=== PATIENT | male | born 1980 | race African-American/Black ===

== ENCOUNTER 2023-09-23 19:14 | Inpatient (IN) | payer SELFPAY ==
[2023-09-23] MEDS ORDERED: MORPHINE 4 MG/ML SYR ONE ×3 (20:49→23:06)
[2023-09-23] MEDS ORDERED: NA CHLORIDE 0.9% 0 ML ONE (20:50)
[2023-09-23] MEDS ORDERED: ONDANSETRON 4 MG/2 ML VIAL ONE ×2 (20:50→20:55)
[2023-09-23] MEDS ORDERED: FAMOTIDINE 20 MG/2 ML VIAL IV ONE ×2 (20:50→20:55)
[2023-09-23] MEDS ORDERED: NA CHLORIDE 0.9% 1,000 ML ONE ×2 (20:55→23:06)
[2023-09-23 21:08] LABS: Absolute Lymphocytes (CBC) 1.2 K/uL (0.7-4.9); Hematocrit 46.2 % (39.6-49.0); MCV 93.2 fL (80-100); MPV 8.7 fL (7.6-11.3); Platelets 205 thou/uL (152-406); RBC Red Blood Cell Count 4.96 M/uL (4.33-5.43)
[2023-09-23 21:16] LABS: Albumin 3.8 g/dL (3.4-5.0); Bilirubin Total 1.5 mg/dL (0.2-1.0); Potassium 3.3 mEq/L (3.5-5.1)
[2023-09-23 21:46] LABS: Specific Gravity 1.015 (1.005-1.030); Urine Bilirubin NEGATIVE (Negative); Urine Blood Negative (Negative); Urine Clarity Clear (Clear); Urine Color Light-Yellow (Yellow); Urine Glucose NEGATIVE (Negative); Urine Protein NEGATIVE (Negative); Urine Urobilinogen Normal (Normal)
--- NOTE | 2023-09-23 22:07 | RAD REPORT ---
EXAM DESCRIPTION: CT - Abdomen Pelvis W Contrast - 09/23/2023 9:52 pm CLINICAL HISTORY: Abdominal pain COMPARISON: none. TECHNIQUE: Computed axial tomography of the abdomen pelvis was obtained. 100 cc Isovue-300 was admin istered intravenously. Oral contrast was not requested which limits evaluation of bowel and appendix All CT scans are performed using dose optimization technique as appropriate and may include automated exposure control or mA/KV adjustment according to patient size. FINDINGS: Pancreas is normal size and density. There is mild to moderate peripancreatic stranding. V erlinda small amount of ill-defined fluid within the peripancreatic space. No pseudocyst The liver, spleen, adrenal and kidneys appear unremarkable. There is no evidence of diverticulitis. Normal appendix IMPRESSION: Mild to moderate pancreatitis
--- NOTE | 2023-09-23 22:36 | ER ---
Nurse's Notes [facility] Name: Chun Hair Age: 43 yrs Sex: Male : 1980 Arrival Date: 09/23/2023 Time: 19:14 Bed 14 Private MD: Diagnosis: Other acute pancreatitis without necrosis or infection Presentation: 09/23 19:37 Chief complaint: Patient states: abdominal pain. diagnosed 1 month ago with lg3 pancreatitis. pain comes and goes. started again last night with nausea, vomiting and constipation. Coronavirus screen: Client denies travel out of the [place] in the last 14 days. At this time, the client does not indicate any symptoms associated with coronavirus-19. Ebola Screen: No symptoms or risks identified at this time. Initial Sepsis Screen: Does the patient meet any 2 criteria? No. Patient's initial sepsis screen is negative. Does the patient have a suspected source of infection? No. Patient's initial sepsis screen is negative. Risk Assessment: Do you want to hurt yourself or someone else? Patient reports no desire to harm self or others. Onset of symptoms was September 22, 2023. 19:37 Method Of Arrival: Ambulatory lg3 19:37 Acuity: BERLIN 3 lg3 Triage Assessment: 19:40 General: Appears in no apparent distress. uncomfortable, Behavior is calm, cooperative. lg3 Pain: Complains of pain in abdomen. EENT: No deficits noted. No signs and/or symptoms were reported regarding the EENT system. Neuro: No deficits noted. Lozano Agitation-Sedation Scale (RASS): 0 - Alert and Calm Level of Consciousness is awake, alert, obeys commands, Oriented to person, place, time, situation. Cardiovascular: No deficits noted. Denies chest pain, shortness of breath, Capillary refill < 3 seconds Clubbing of nail beds is absent JVD is absent Patient's skin is warm and dry. Respiratory: No deficits noted. Airway is patent Respiratory effort is even, unlabored, Respiratory pattern is regular, symmetrical. GI: Abdomen is round non-distended, Reports lower abdominal pain, upper abdominal pain, constipation, cramping, nausea, vomiting. : No deficits noted. No signs and/or symptoms were reported regarding the genitourinary system. Derm: No deficits noted. No signs and/or symptoms reported regarding the dermatologic system. Musculoskeletal: No deficits noted. No signs and/or symptoms reported regarding the musculoskeletal system. Circulation, motion, and sensation intact. Range of motion: intact in all extremities. Historical: - Allergies: 19:40 amoxicillin; lg3 - Home Meds: 19:40 HCTZ [Active]; amlodipine oral [Active]; lg3 - PMHx: 19:40 HTN; pancreatitis; lg3 - PSHx: 19:40 left shoulder; lg3 - Immunization history:: Adult Immunizations up to date. - Social history:: Smoking status: Patient reports the use of cigarette tobacco products, smokes one-half pack cigarettes per day, Patient uses alcohol, occasionally. Patient/guardian denies using street drugs. Screenin:13 [facility] ED Fall Risk Assessment (Adult) History of falling in the last 3 months, me1 including since admission No falls in past 3 months (0 pts) Confusion or Disorientation No (0 pts) Intoxicated or Sedated No (0 pts) Impaired Gait No (0 pts) Mobility Assist Device Used No (0 pt) Altered Elimination No (0 pt) Score/Fall Risk Level 0 - 2 = Low Risk Maintained a safe environment, Provided non-skid footwear, Hourly rounding (assess needs \T\ fall precautionary measures) done. Abuse screen: Denies threats or abuse. Nutritional screening: No deficits noted. Tuberculosis screening: No symptoms or risk factors identified. Assessment: 23:10 General: Appears uncomfortable, well groomed, well developed, well nourished, Behavior me1 is calm, cooperative, appropriate for age, Reports abdominal pain. diagnosed 1 month ago with pancreatitis. pain comes and goes. started again last night with nausea, vomiting and constipation. Pain: Complains of pain in abdomen Pain does not radiate. Pain currently is 5 out of 10 on a pain scale. Quality of pain is described as crampy, piercing, Pain began gradually, 1 day ago. Is continuous. Neuro: Level of Consciousness is awake, alert, obeys commands, Oriented to person, place, time, situation, Appropriate for age. Cardiovascular: Capillary refill < 3 seconds Patient's skin is warm and dry. Respiratory: Airway is patent Respiratory effort is even, unlabored, Respiratory pattern is regular, symmetrical. GI: Bowel sounds present X 4 quads. Abd is soft X 4 quads Reports upper abdominal pain, constipation, nausea, vomiting, since yesterday. Vital Signs: 19:37 BP 163 / 106; Pulse 71; Resp 19 S; Temp 99(O); Pulse Ox 100% on R/A; Weight 115.67 kg lg3 (R); Height 5 ft. 10 in. (R); Pain 8/10; 20:47 BP 148 / 75; Pulse 72; Resp 17; Pulse Ox 99% ; jj7 21:30 BP 142 / 83; Pulse 76; Resp 16; Pulse Ox 98% on R/A; me1 22:30 BP 143 / 76; Pulse 74; Resp 16; Pulse Ox 96% on R/A; me1 23:30 BP 142 / 81; Pulse 74; Resp 16; Pulse Ox 100% on R/A; me1 19:37 Body Mass Index 36.59 (115.67 kg, 177.8 cm) lg3 19:37 Pain Scale: Adult lg3 ED Course: 19:20 Patient arrived in ED. gm2 19:21 John Newberry PA is PHCP. cp 19:21 John Bustillos MD is Attending Physician. cp 19:40 Triage completed. lg3 19:40 Arm band placed on right wrist. lg3 20:26 Alina Tavarez, HAILEE is Primary Nurse. me1 20:37 CBC with Diff Sent. jr12 20:37 CMP Sent. jr12 20:37 Lipase Sent. jr12 20:37 Inserted saline lock: 22 gauge in left antecubital area, using aseptic technique. Blood jr12 collected. 21:42 Urinalysis w/ reflexes Sent. me1 21:54 CT Abd/Pelvis - IV Contrast Only In Process Unspecified. EDMS 22:34 Klever Ko MD is Hospitalizing Provider. cp 22:48 Blood Culture Adult (2) Sent. me1 22:48 Lactate w/ 2H reflex if indic. Sent. me1 22:48 Manual Differential Sent. me1 22:55 US Abdomen Limited: gallbladder In Process Unspecified. EDMS 23:13 Patient has correct armband on for positive identification. Bed in low position. Call me1 light in reach. Side rails up X 1. Provided Education on: POC. Verbalized understanding. . 23:13 No provider procedures requiring assistance completed. Flushed right antecubital. me1 09/24 13:06 Patient admitted, IV remains in place. ko1 Administered Medications: 09/23 20:46 Drug: morphine IVP or IV 4 mg IVP once over 4 mins Route: IVP; Infused Over: 4 mins; jj7 Site: left antecubital; 21:42 Follow up: Response: No adverse reaction me1 20:47 Drug: NS 0.9% IV 1000 ml IV at 1 bolus Per protocol; 1000 mL bolus Route: IV; Rate: 1 jj7 bolus; Site: left antecubital; 20:47 Drug: Famotidine IVP 20 mg IVP once; dilute with 10 mL 0.9% NaCl; give over 2 minutes jj7 Route: IVP; Site: left antecubital; 21:42 Follow up: Response: No adverse reaction me1 20:47 Drug: Ondansetron IVP 4 mg IVP once; over 2 minutes Route: IVP; Site: left antecubital; jj7 21:42 Follow up: Response: No adverse reaction me1 22:54 Drug: NS 0.9% IV 1000 ml IV at 1 bolus Per protocol; 1000 mL bolus Route: IV; Rate: 1 me1 bolus; Site: left antecubital; 22:54 Drug: morphine IVP or IV 4 mg IVP once over 4 mins Route: IVP; Infused Over: 4 mins; me1 Site: left antecubital; Medication: 09/24 13:06 VIS not applicable for this client. ko1 Outcome: 09/23 22:35 Decision to Hospitalize by Provider. cp 09/24 13:06 Admitted to Med/surg accompanied by tech, via wheelchair, room 409, with chart, Report ko1 called to HAILEE Brown Condition: stable Instructed on the need for admit, 13:42 Patient left the ED. ll1 Signatures: Dispatcher [employer] [facility] John Newberry PA PA cp Nataliia Villa RN RN lg3 Juvenal Hunter RN RN ll1 Madison Hopper RN RN ko1 Bertha Love RN RN jj7 Alina Tavarez RN RN me1 Sarah Deutsch [facility] Angie Ray 2 Corrections: (The following items were deleted from the chart) 09/23 23:10 19:37 Chief complaint: Patient states: abdominal pain. diagnosed 1 month ago with me1 pancreatitis. pain comes and goes. started again last night with nausea, vomiting and constipation. lg3
--- NOTE | 2023-09-23 22:36 | EDPHYS ---
Physician Documentation [facility] Name: Chun Hair Age: 43 yrs Sex: Male : 1980 Arrival Date: 09/23/2023 Time: 19:14 Bed 14 Private MD: ED Physician John Bustillos HPI: 09/23 19:45 This 43 yrs old Black Male presents to ER via Ambulatory with complaints of Abdominal cp Pain. 19:45 The patient presents with abdominal pain that is diffuse. cp 19:45 Onset: The symptoms/episode began/occurred yesterday, and became worse today. The cp symptoms do not radiate. Associated signs and symptoms: Pertinent positives: nausea, Pertinent negatives: chest pain, constipation, diarrhea, fever, testicular pain, vomiting. The symptoms are described as constant. Severity of pain: in the emergency department the pain is unchanged despite home interventions. The patient has experienced a previous episode, pain similar to recent diagnosis for pancreatitis. Historical: - Allergies: 19:40 amoxicillin; lg3 - Home Meds: 19:40 HCTZ [Active]; amlodipine oral [Active]; lg3 - PMHx: 19:40 HTN; pancreatitis; lg3 - PSHx: 19:40 left shoulder; lg3 - Immunization history:: Adult Immunizations up to date. - Social history:: Smoking status: Patient reports the use of cigarette tobacco products, smokes one-half pack cigarettes per day, Patient uses alcohol, occasionally. Patient/guardian denies using street drugs. ROS: 19:50 Constitutional: Negative for body aches, chills, fever, poor PO intake, cp 19:50 Eyes: Negative for injury, pain, redness, and discharge, cp 19:50 Abdomen/GI: Positive for abdominal pain, nausea, Negative for vomiting, diarrhea, constipation, 19:50 ENT: Negative for drainage from ear(s), ear pain, sore throat, difficulty swallowing, cp difficulty handling secretions, 19:50 Cardiovascular: Negative for chest pain, edema, palpitations, 19:50 Respiratory: Negative for cough, shortness of breath, wheezing, 19:50 Back: Negative for pain at rest, pain with movement, 19:50 : Negative for testicular pain 19:50 Neuro: Negative for altered mental status, headache, weakness, 19:50 All other systems are negative, cp Exam: 19:50 Constitutional: The patient appears in no acute distress, alert, awake, cp non-diaphoretic, non-toxic, well developed, well nourished, uncomfortable, 19:50 Head/Face: Normocephalic, atraumatic. cp 19:50 Eyes: Periorbital structures: appear normal, Conjunctiva: normal, no exudate, no injection, Sclera: no appreciated abnormality, Lids and lashes: appear normal, bilaterally, 19:50 ENT: External ear(s): are unremarkable, Nose: is normal, Mouth: Lips: moist, Oral mucosa: moist, Posterior pharynx: is normal, airway is patent, no erythema, no exudate, 19:50 Neck: ROM/movement: is normal, is supple, without pain, no range of motions limitations, 19:50 Chest/axilla: Inspection: normal, 19:50 Cardiovascular: Rate: normal, Rhythm: regular, 19:50 Respiratory: the patient does not display signs of respiratory distress, Respirations: normal, no use of accessory muscles, no retractions, labored breathing, is not present, Breath sounds: are clear throughout, no decreased breath sounds, no stridor, no wheezing, 19:50 Abdomen/GI: Inspection: abdomen appears normal, Bowel sounds: active, all quadrants, Palpation: soft, in all quadrants, moderate abdominal tenderness, in the abdomen diffusely, rebound tenderness, is not appreciated, voluntary guarding, is elicited in the abdomen diffusely, 19:50 Back: pain, is absent, ROM is normal, Vital Signs: 19:37 BP 163 / 106; Pulse 71; Resp 19 S; Temp 99(O); Pulse Ox 100% on R/A; Weight 115.67 kg lg3 (R); Height 5 ft. 10 in. (R); Pain 8/10; 20:47 BP 148 / 75; Pulse 72; Resp 17; Pulse Ox 99% ; jj7 21:30 BP 142 / 83; Pulse 76; Resp 16; Pulse Ox 98% on R/A; me1 22:30 BP 143 / 76; Pulse 74; Resp 16; Pulse Ox 96% on R/A; me1 23:30 BP 142 / 81; Pulse 74; Resp 16; Pulse Ox 100% on R/A; me1 19:37 Body Mass Index 36.59 (115.67 kg, 177.8 cm) lg3 19:37 Pain Scale: Adult lg3 MDM: 19:43 Patient medically screened. cp 20:00 Differential diagnosis: appendicitis, bowel obstruction, cholecystitis, Cholelithiasis, cp gastritis, non-specific abd pain, pancreatitis, Peptic Ulcer Disease, Perf. Duodenal Ulcer, Perf. Gastric Ulcer, Pyelonephritis, Ureterolithiasis, urinary tract infection. 22:20 Data reviewed: vital signs, nurses notes, lab test result(s), radiologic studies, CT cp scan, and as a result, I will admit patient. 22:20 Management of patient was discussed with the following: Hospitalist: DR Ko will cp admit after discussion. I considered the following discharge prescriptions or medication management in the emergency department Medications were administered in the Emergency Department. See MAR. Care significantly affected by the following chronic conditions: Hypertension. 09/23 19:39 Order name: CBC with Diff 09/23 22:15 Interpretation: Normal except: WBC 14.90; OG% 87.5; LYM% 8.0; NEUT A 13.0. 09/23 19:39 Order name: CMP; Complete Time: 22:12 09/23 22:15 Interpretation: Normal except: K 3.3; NA 133; BILIT 1.5; A/G 0.9; GLOB 4.2. 09/23 19:39 Order name: Lipase; Complete Time: 22:12 09/23 22:15 Interpretation: Abnormal: LIP 3807. 09/23 19:39 Order name: Urinalysis w/ reflexes; Complete Time: 22:12 09/23 21:37 Order name: Manual Differential EDMS 09/23 22:16 Order name: Lactate w/ 2H reflex if indic. 09/23 22:16 Order name: Blood Culture Adult (2) 09/23 22:49 Order name: Urinalysis w/ reflexes EDMS 09/23 20:21 Order name: CT Abd/Pelvis - IV Contrast Only; Complete Time: 22:12 09/23 22:36 Order name: US Abdomen Limited: gallbladder 09/23 19:39 Order name: IV Saline Lock; Complete Time: 20:37 09/23 19:39 Order name: Labs collected and sent; Complete Time: 20:37 09/23 22:36 Order name: NPO; Complete Time: 22:48 cp Administered Medications: 20:46 Drug: morphine IVP or IV 4 mg IVP once over 4 mins Route: IVP; Infused Over: 4 mins; jj7 Site: left antecubital; 21:42 Follow up: Response: No adverse reaction me1 20:47 Drug: NS 0.9% IV 1000 ml IV at 1 bolus Per protocol; 1000 mL bolus Route: IV; Rate: 1 jj7 bolus; Site: left antecubital; 20:47 Drug: Famotidine IVP 20 mg IVP once; dilute with 10 mL 0.9% NaCl; give over 2 minutes jj7 Route: IVP; Site: left antecubital; 21:42 Follow up: Response: No adverse reaction me1 20:47 Drug: Ondansetron IVP 4 mg IVP once; over 2 minutes Route: IVP; Site: left antecubital; jj7 21:42 Follow up: Response: No adverse reaction me1 22:54 Drug: NS 0.9% IV 1000 ml IV at 1 bolus Per protocol; 1000 mL bolus Route: IV; Rate: 1 me1 bolus; Site: left antecubital; 22:54 Drug: morphine IVP or IV 4 mg IVP once over 4 mins Route: IVP; Infused Over: 4 mins; me1 Site: left antecubital; Disposition Summary: 09/23/23 22:35 Hospitalization Ordered Notes: Hospitalization Status: Inpatient Admission cp Provider: Klever Ko cp Condition: Stable cp Problem: new cp Symptoms: have improved cp Bed/Room Type: Standard cp Location: Telemetry/MedSurg (Inpatient)(09/24/23 12:19) bd Room Assignment: [facility](09/24/23 12:19) bd Diagnosis - Other acute pancreatitis without necrosis or infection cp Forms: - Medication Reconciliation Form cp - SBAR form cp - Leadership Thank You Letter cp Signatures: Dispatcher [employer] Sara Knight Corey, PA PA cp Gibson, Lacie RN RN lg3 Bertha Love RN RN jj7 Alina Tavarez RN RN me1 Corrections: (The following items were deleted from the chart) 22:15 22:12 Normal except: K 3.3; NA 133. cp cp 09/24 01:55 11/28 22:35 Telemetry/MedSurg (Inpatient) cp lg3 09/24 01:55 09/23 22:35 cp lg3 09/24 12:19 01:55 [facility] ER HOLD lg3 bd 12: 01:55 ERHOLD- lg3 bd
[2023-09-23] MEDS ORDERED: ACETAMINOPHEN 325 MG TABLET PO PRN (22:43)
--- NOTE | 2023-09-23 22:48 | P.HP ---
Certification for Inpatient Patient admitted to: Inpatient With expected LOS: >2 Midnights Practitioner: I am a practitioner with admitting privileges, knowledge of patient current condition, hospital course, and medical plan of care. Services: Services provided to patient in accordance with Admission requirements found in Title 42 Section 412.3 of the Code of Federal Regulations Patient History Date of Service: 09/24/23 Reason for admission: Abdominal pain, pancreatitis. History of Present Illness: 43-year-old male patient who has no significant medical history was evaluated in the ED for episode of abdominal pain. Pain was said to be rated 10 out of 10 in intensity located in the upper abdomen region radiating to the back. Because of concerns he had lab work that showed elevated lipase of [address] of the abdomen/pelvis done revealed increased peripancreatic fluid inflammation which is mild to moderate without any overt abscess collection. He was deemed to have significant pancreatitis based on clinical and imaging finding and was admitted for inpatient care. Review of Systems General: Unremarkable Eyes: Unremarkable ENT: Unremarkable Respiratory: Unremarkable Cardiovascular: Unremarkable Gastrointestinal: Abdominal Pain Genitourinary: Unremarkable Musculoskeletal: Unremarkable Integumentary: Unremarkable Neurological: Unremarkable Physical Examination - Physical Exam General: Alert, Oriented x3 HEENT: Atraumatic, Normocephalic Neck: Supple Respiratory: Normal air movement Cardiovascular: Regular rate/rhythm, Normal S1 S2 Gastrointestinal: Tenderness Musculoskeletal: No swelling Neurological: Normal speech - Studies Laboratory Data (last 24 hrs) 09/23/23 09/23/23 20:23 20:23 WBC 14.90 H Hgb 15.4 Hct 46.2 Plt Count 205 Sodium 133 L Potassium 3.3 L BUN 9 Creatinine 0.92 Glucose 88 Total Bilirubin 1.5 H AST 32 ALT 51 Alkaline Phosphatase 80 Lipase 3807 H Assessment and Plan - Plan Pancreatitis: Imaging studies reviewed peripancreatic fluid and moderate pancreatic inflammation. No abscess collection noted. Empiric therapy with lactated Ringer's, IV Dilaudid started. Patient will be kept nil per os pending further review. Gastroenterology consultation will be determined by clinical response. Abdominal pain: Deemed due to pancreatitis episode. Will monitor routinely and adjust pain control to achieve adequate response Hypokalemia: Low potassium noted at 3.3. Will replete and follow levels. Hyponatremia: Low sodium is at 133. Will continue isotonic fluid administration and monitor levels on the labs. Prophylaxis: Lovenox for DVT prophylaxis CODE STATUS: Full code Disposition: We will treat pancreatitis and he will be discharged once medically cleared. - Advance Directives Does patient have a Living Will: No Does patient have a Durable POA for Healthcare: No
[2023-09-23 23:06] LABS: Blood Morphology Comment NOT SEEN (NOT SEEN); Platelet Estimate ADEQ
[2023-09-24] MEDS ORDERED: Ringers Lactate 1,000 ML IV ONE ×2 (01:57→10:21)
[2023-09-24] MEDS: Ringers Lactate 1,000 ML IV SCH ×5 (02:20→23:00)
[2023-09-24] MEDS: HYDROMORPHONE HCL 0.5 MG/0.5 ML INJ IV PRN ×4 (02:33→20:32)
[2023-09-24] MEDS ORDERED: HYDROMORPHONE HCL 0.5 MG/0.5 ML INJ ONE ×2 (02:44→11:20)
[2023-09-24 02:49] VITALS: BMI 35.9
[2023-09-24] MEDS: POTASSIUM 25 MEQ EFFERV TAB PO ONE ×2 (07:20)
[2023-09-24] MEDS: ENOXAPARIN 40 MG/0.4 ML SQ SCH (09:00)
[2023-09-24] MEDS ORDERED: ENOXAPARIN 40 MG/0.4 ML SQ ONE (10:21)
[2023-09-24] MEDS ORDERED: KCL 20 MEQ/100 mL IVPB 20 MEQ/100 ML BAG IV ONE (11:00)
[2023-09-24] MEDS: ONDANSETRON 4 MG/2 ML VIAL IV PRN ×2 (11:03→20:36)
[2023-09-24] MEDS ORDERED: ONDANSETRON 4 MG/2 ML VIAL ONE (11:20)
--- NOTE | 2023-09-24 11:30 | RAD REPORT ---
EXAM DESCRIPTION: US - Abdomen Exam Limited - 09/23/2023 10:53 pm CLINICAL HISTORY: The patient is 43 years old and is Male; ABD PAIN TECHNIQUE: Real-time ultrasound of the right upper quadrant with image documentation. COMPARISON: No relevant prior studies available. FINDINGS: Gallbladder: Unremarkable. No gallstones. Common bile duct: Unremarkable as visualized. No stones. No dilation. IMPRESSION: Normal right upper quadrant ultrasound. Electronically signed by: Garrett Collado MD 09/23/2023 11:46 PM BANDMILL OPERATOR Due to temporary technical issues with the PACS/Fluency reporting system, reports are being signed by the in house radiologist without review as a courtesy to ensure prompt reporting. The interpreting r adiologist is fully responsible for the content of the report.
--- NOTE | 2023-09-24 15:33 | RAD REPORT ---
EXAM DESCRIPTION: MRI - Cholangiogram - 09/24/2023 1:10 pm CLINICAL HISTORY: Acute pancreatitis COMPARISON: Abdomen Pelvis W Contrast dated 09/23/2023; Abdomen Exam Limited dated 09/23/2023 TECHNIQUE: Multiplanar multisequence MRI of the abdomen, obtained without IV contrast, utilizing M BENCH JEWELER sequences. FINDINGS: Breathing motion artifact somewhat limits evaluation. Left lower lobe dependent atelectati c changes with trace pleural effusion. Gallbladder is normally distended without filling defects to suggest gallstones. No pericholecystic f luid or wall thickening. No intrahepatic biliary ductal dilation. Common bile duct is normal in caliber, 4 millimeter. No filling defects to suggest choledocholithiasi s. Smooth tapering at the ampulla. Main pancreatic duct is not dilated. Peripancreatic edematous changes with swelling most pronounced along the body of the pancreas, simila r to the prior CT, again suggestive of sequelae of acute interstitial pancreatitis. Trace fluid track ing along the left retroperitoneum. No appreciable fluid collections. Central right liver lobe fluid signal intensity 2.3 cm lesion not well characterized, but suggestive of a benign entity such as a cyst or hemangioma. No other suspicious focal hepatic lesions. The visua lized aspects of the spleen, adrenal glands, and kidneys are unremarkable. Few fluid distended upper abdominal small bowel loops. Findings may relate to early ileus. No suspicious osseous lesions. Trace bilateral pleural effusions IMPRESSION: Normal MR cholangiogram. Sequelae of acute interstitial pancreatitis. No appreciable fluid collections in the vicinity of the pancreas on noncontrast MRI. Central right liver lobe 2.3 cm fluid signal intensity lesion suggestive of a benign entity such as a cyst or hemangioma, although not fully characterized.
[2023-09-24 23:34] VITALS: O2SAT 96
[2023-09-25] MEDS: Ringers Lactate 1,000 ML IV SCH ×2 (04:24→07:00)
[2023-09-25 07:42] LABS: Absolute Lymphocytes (CBC) 1.4 K/uL (0.7-4.9); Hematocrit 40.3 % (39.6-49.0); Lymphocytes % 10.9 % (15.3-44.8); MCV 93.7 fL (80-100); MPV 8.7 fL (7.6-11.3); Platelets 183 thou/uL (152-406)
[2023-09-25 07:46] LABS: Albumin 2.9 g/dL (3.4-5.0); Bilirubin Total 2.6 mg/dL (0.2-1.0); Magnesium 2.2 mg/dL (1.6-2.4); Potassium 3.4 mEq/L (3.5-5.1); Protein, Total 6.7 g/dL (6.4-8.2)
[2023-09-25] MEDS ORDERED: NA CHLORIDE 0.9% 500 ML IV ONE (08:08)
[2023-09-25] MEDS: ENOXAPARIN 40 MG/0.4 ML SQ SCH (09:00)
[2023-09-25] MEDS: NA CHLORIDE 0.9% 1,000 ML IV SCH ×2 (09:31→15:40)
[2023-09-25] MEDS ORDERED: POTASSIUM PHOS IN 0.9 % NACL 15 MMOL/250 ML BAG IV ONE (11:45)
[2023-09-25 12:30] LABS: Albumin 2.9 g/dL (3.4-5.0); Bilirubin Total 2.3 mg/dL (0.2-1.0); Magnesium 1.9 mg/dL (1.6-2.4); Potassium 3.5 mEq/L (3.5-5.1); Protein, Total 6.5 g/dL (6.4-8.2)
[2023-09-25] MEDS: HYDROMORPHONE HCL 0.5 MG/0.5 ML INJ IV PRN (15:51)
[2023-09-25] MEDS: ONDANSETRON 4 MG/2 ML VIAL IV PRN (15:51)
[2023-09-25 17:13] VITALS: BP 154/67; TEMP 98.2
== END 2023-09-25 19:44 | disposition home or self-care (01) | DRG 439 ==
LOC: ER 19:14 → ERHOLD 22:43 → 4TH 09-24 13:09
PROVIDERS: ADMIT Internal Medicine Nephrology; ATTEND Hospitalist
DX: K85.90 Acute pancreatitis without necrosis or infection, unspecified (principal); E87.1 Hypo-osmolality and hyponatremia; E87.6 Hypokalemia; F17.210 Nicotine dependence, cigarettes, uncomplicated; Z88.1 Allergy status to other antibiotic agents; Z79.899 Other long term (current) drug therapy
CPT/HCPCS: 36415; 74177; 74181; 76705; 80053; 81003; 83605; 83690; 83735; 83880; 84100; 84132; 85025; 87040; 96374; 96375; 99285; J1170; J1650; J2405; J3480; J7030; J7040; J7120; Q9967